=== PATIENT | male | born 2000 | race Caucasian/White ===

== ENCOUNTER 2019-08-31 01:26 | Emergency (ER) | payer OTHER ==
[~2019-08-31] VITALS: Ht 185.4 cm; Wt 120.7 kg
--- NOTE | 2019-08-31 01:41 | NUR ---
Dr. Santana at bedside for MSE.
[2019-08-31] MEDS ORDERED: GUAIFENESIN/DEXTROMETHORPHAN 5 ML UDC ONE (01:52)
[2019-08-31] MEDS ORDERED: IBUPROFEN 600 MG TABLET ONE (01:53)
[2019-08-31] MEDS ORDERED: GUAIFENESIN/CODEINE 5 ML LIQUID UDC ONE (01:53)
[2019-08-31] MEDS ORDERED: IBUPROFEN 600 MG TABLET PO ONE (02:00)
[2019-08-31] MEDS ORDERED: GUAIFENESIN/CODEINE 5 ML LIQUID UDC PO ONE (02:00)
--- NOTE | 2019-08-31 02:36 | NUR ---
Xray at bedside.
--- NOTE | 2019-08-31 02:46 | NUR ---
Patient discharged to home in stable conditon. Written and verbal after care instructions given. Patient verbalizes understanding of instructions. Pt ambulated out of ER with steady gait, no acute signs of distress, VSS, all belongings taken, IV site discontinued.
[2019-08-31 02:49] VITALS: BP 130/87
== END 2019-08-31 02:49 | disposition home or self-care (01) ==
LOC: ER 01:29
DX: I47.1 Supraventricular tachycardia (principal); L30.9 Dermatitis, unspecified; J02.8 Acute pharyngitis due to other specified organisms; B97.89 Other viral agents as the cause of diseases classified elsewhere; F17.200 Nicotine dependence, unspecified, uncomplicated
CPT/HCPCS: 36415; 71045; 86403; 87070; 93005; A4663